=== PATIENT | female | born 1985 | race Caucasian/White ===

== ENCOUNTER 2017-07-08 20:13 | Emergency (ER) | payer SELFPAY ==
[2017-07-08 20:14] VITALS: BMI 36.1
[2017-07-08 20:50] VITALS: RESP 14; O2SAT 98
--- NOTE | 2017-07-08 21:23 | C.PDOC ---
History Of Present Illness Patient is a 31 y/o female who presents to the ED with complaints of abdominal pain for the past 2 hours. Patient reports to have been injured in the right upper abdomen with an object at work; denies nausea, vomiting, and diarrhea. No other pain at this time. Chief Complaint (Nursing): Abdominal Pain History Per: Patient History/Exam Limitations: no limitations Onset/Duration Of Symptoms: Hrs Current Symptoms Are (Timing): Still Present Location Of Pain/Discomfort: RUQ, Epigastric Associated Symptoms: denies: Nausea, Vomiting, Diarrhea Recent travel outside of the [place]: No Past Medical History Reviewed: Historical Data, Nursing Documentation, Vital Signs Vital Signs: Last Vital Signs Temp 98.3 F 07/08/17 20:47 Pulse 80 07/08/17 20:47 Resp 14 07/08/17 20:47 BP 100/57 L 07/08/17 20:47 Pulse Ox 98 07/09/17 00:39 - Medical History PMH: No Chronic Diseases Surgical History: No Surg Hx Family History: States: Unknown Family Hx - Social History Hx Tobacco Use: No Hx Alcohol Use: No Hx Substance Use: No - Immunization History Hx Tetanus Toxoid Vaccination: No Hx Influenza Vaccination: No Hx Pneumococcal Vaccination: No Review Of Systems Cardiovascular: Negative for: Chest Pain, Palpitations Respiratory: Negative for: Shortness of Breath Gastrointestinal: Positive for: Abdominal Pain. Negative for: Nausea, Vomiting , Diarrhea Genitourinary: Negative for: Dysuria Physical Exam - Physical Exam Appears: Well, Non-toxic Skin: Normal Color, Warm, Dry Head: Atraumatic, Normacephalic Oral Mucosa: Moist Chest: Symmetrical Cardiovascular: Rhythm Regular, No Murmur Respiratory: Normal Breath Sounds, No Rales, No Rhonchi, No Wheezing Gastrointestinal/Abdominal: Tenderness (RUQ. ), No Guarding, No Rebound Extremity: Normal ROM (x4) Neurological/Psych: Oriented x3, Normal Speech, Normal Cognition ED Course And Treatment - Laboratory Results Result Diagrams: 07/08/17 21:40 07/08/17 21:40 Interpretation Of ECG: CT A/P, UA, and blood work ordered; Toradol administered. O2 Sat by Pulse Oximetry: 98 (room air) Pulse Ox Interpretation: Normal - CT Scan/US A/P Other Rad Studies (CT/US): Interpreted By Me, Read By Radiologist CT/US Interpretation: IMPRESSION: No definitive acute CT finding to correspond to reported history. Disposition Counseled Patient/Family Regarding: Diagnosis - Disposition Referrals: [facility] [Outside] Disposition Time: 00:42 Condition: STABLE Prescriptions: Naproxen [Naprosyn Tab] 375 mg PO TIDPC #14 tab Instructions: Contusion in Adults (ED) Forms: [employer] Connect (Bermudian), Gen Discharge Inst [facility] Print Language: KHMER - POA Present On Arrival: None - Clinical Impression Clinical Impression: Abdominal wall pain, Contusion - Scribe Statement The provider has reviewed the documentation as recorded by the Scribe Dilma Valdes All medical record entries made by the Scribe were at my direction and personally dictated by me. I have reviewed the chart and agree that the record accurately reflects my personal performance of the history, physical exam, medical decision making, and the department course for this patient. I have also personally directed, reviewed, and agree with the discharge instructions and disposition.
[2017-07-08 21:48] LABS: BASO % 0.5 % (0.0-2.0); EOS # 0.2 K/uL (0.0-0.7); EOS % 2.4 % (0.0-4.0); HEMATOCRIT 38.1 % (34.0-47.0); LYMPH % 43.6 % (20.0-40.0); MEAN CELL VOLUME 84.2 fL (81.0-99.0); MEAN CORPUSCULAR HEMOGLOBIN 28.1 pg (27.0-31.0); MEAN CORPUSCULAR HGB CONC 33.4 g/dL (33.0-37.0); MEAN PLATELET VOLUME 7.6 fL (7.2-11.7); MONO # 0.6 K/uL (0.0-0.8); MONO % 6.4 % (0.0-10.0); NRBC % 0.1 % (0.0-2.0); WHITE BLOOD COUNT 9.2 K/uL (4.8-10.8)
[2017-07-08 21:57] LABS: CHLORIDE 104 mmol/L (98-107); SODIUM 139 mmol/L (132-148)
[2017-07-08 21:59] LABS: ALB/GLOB RATIO 1.4 (1.0-2.1); AST/SGOT 45 U/L (14-36); BILIRUBIN,TOTAL 0.6 mg/dL (0.2-1.3); CARBON DIOXIDE 23 mmol/L (22-30); GFR AFRICAN-AMERICAN > 60; TOTAL PROTEIN 7.7 g/dL (6.3-8.3)
[2017-07-08 22:00] LABS: ALKALINE PHOSPHATASE 76 U/L (38-126); ALT/SGPT 52 U/L (9-52); BLOOD UREA NITROGEN 16 mg/dL (7-17); CALCIUM 8.7 mg/dl (8.6-10.4); GLUCOSE,RANDOM 84 mg/dL (65-105)
[2017-07-08 22:09] LABS: RBC URINE 1 /hpf (0-3); URINE BILIRUBIN NEGATIVE (NEGATIVE); URINE BLOOD NEGATIVE (NEGATIVE); URINE COLOR Yellow (YELLOW); URINE GLUCOSE (UA) NORMAL (Normal); URINE KETONE NEGATIVE (NEGATIVE); URINE LEUKOCYTE ESTERASE NEG Leu/uL (Negative); URINE PROTEIN NEGATIVE (NEGATIVE); URINE UROBILINOGEN NORMAL mg/dL (0.2-1.0); WBC URINE 1 /hpf (0-5)
--- NOTE | 2017-07-09 00:37 | CT ---
EXAM: CT Abdomen and Pelvis Without Intravenous Contrast CLINICAL HISTORY: 31 years old, female; Injury or trauma; Fall; Initial encounter; Sprain or strain; Additional info: Injury to right side of abdomen TECHNIQUE: Axial computed tomography images of the abdomen and pelvis without intravenous contrast. All CT scans at this facility use one or more dose reduction techniques, viz.: automated exposure control; ma/kV adjustment per patient size (including targeted exams where dose is matched to indication; i.e. head); or iterative reconstruction technique. Coronal and sagittal reformatted images were created and reviewed. COMPARISON: No relevant prior studies available. FINDINGS: The unenhanced liver, spleen, pancreas, kidneys and adrenal glands The aorta is normal in caliber. Please note evaluation for underlying visceral lesions/abnormalities limited without intravenous contrast. The small and large bowel as visualized demonstrate no evidence of obstruction or clear focus of inflammation. Limited evaluation without enteric contrast. No ascites. No free air. Osseous structures intact. IMPRESSION: No definitive acute CT finding to correspond to reported history.
[2017-07-09 01:02] VITALS: BP 110/60; PULSE 68; TEMP 98
== END 2017-07-09 01:01 | disposition home or self-care (01) ==
LOC: C.ER 20:13
DX: R10.9 Unspecified abdominal pain (principal); S30.1XXA Contusion of abdominal wall, initial encounter; X58.XXXA Exposure to other specified factors, initial encounter; Y99.0 Civilian activity done for income or pay
CPT/HCPCS: 74176; 80053; 81001; 83690; 84703; 85025; 96374; 99283; J1885